=== PATIENT | female | born 2000 | race Caucasian/White ===

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

== ENCOUNTER 2018-07-16 13:49 | Emergency (ER) | payer OTHER | END 2018-07-16 18:55 | disposition home or self-care (01) | LOC: JER 13:49 ==

== ENCOUNTER 2018-08-13 13:42 | Emergency (ER) | payer OTHER ==
[2018-08-13 13:49] VITALS: BP 114/82; PULSE 73; TEMP 98.5; BMI 23.7
[2018-08-13] MEDS ORDERED: KETOROLAC TROMETHAMINE 60 MG/2 ML VIAL IM ONE (14:10)
[2018-08-13] MEDS ORDERED: KETOROLAC TROMETHAMINE 60 MG/2 ML VIAL ONE (14:16)
--- NOTE | 2018-08-13 14:37 | PDOC ---
History of Present Illness - General Chief Complaint: Pain Stated Complaint: STOMACH PAIN/CRAMPS Time Seen by Provider: 08/13/18 13:58 History Source: Patient Exam Limitations: No Limitations Past History - Past Medical History Allergies/Adverse Reactions: Allergies Allergy/AdvReac Type Severity Reaction Status Date / Time No Known Allergies Allergy Verified 11/04/17 10:16 Home Medications: Ambulatory Orders NK [No Known Home Medication] 08/13/18 COPD: No - Immunization History Immunization Up to Date: Yes - Suicide/Smoking/Psychosocial Hx Smoking History: Never smoked Have you smoked in the past 12 months: No Information on smoking cessation initiated: No Hx Alcohol Use: No Drug/Substance Use Hx: No Substance Use Type: None Abd/GI Specific PMHX - Complaint Specific PMHX Colitis: No Diverticulitis: No Gall Bladder Disease: No GERD: No Hepatitis: No Irritable Bowel Synd (IBS): No Pancreatitis: No GI Ulcer Disease: No *Physical Exam - Vital Signs Last Vital Signs Temp Pulse Resp BP Pulse Ox 98.5 F 73 17 114/82 100 08/13/18 13:46 08/13/18 13:46 08/13/18 13:46 08/13/18 13:46 08/13/18 13:46 - Physical Exam General Appearance: No: Apparent Distress Respiratory/Chest: positive: Lungs Clear, Normal Breath Sounds. negative: Respiratory Distress Cardiovascular: positive: Regular Rhythm, Regular Rate, S1, S2. negative: Murmur Gastrointestinal/Abdominal: positive: Normal Bowel Sounds, Soft. negative: Tender, Distended, Guarding, Rebound Musculoskeletal: negative: CVA Tenderness Integumentary: positive: Normal Color Neurologic: positive: Alert, Normal Mood/Affect ED Treatment Course - Medications Given in the ED: ED Medications Discontinued Medications Generic Name Dose Route Start Last Admin Trade Name Freq PRN Reason Stop Dose Admin Ketorolac Tromethamine 60 mg 08/13/18 14:10 08/13/18 14:18 Toradol Injection - IM 08/13/18 14:11 60 mg ONCE ONE Administration Medical Decision Making - Medical Decision Making 18 y/o F with no sig pmh presents with painful menstrual cramps. States her menstruation started yesterday. Patient was here last month for similar complaint. Mentions menstrual cycles are otherwise regular and not heavier than normal. Noticed from around last year that her cycles are more painful than usual. Patient has not followed-up with interactive media project manager; states has no interactive media project manager and unsure how to find one. +mild nausea today. Has been taking Naprosyn for pain; last taken at 7 AM today. Denies fever, sob, cp, vomiting, increased urinary frequency, urgency, dysuria, unusual vaginal discharge, vaginal lesions. Patient states she has not been sexually active for 2 months Dysmenorrhea Plan: Toradol, UCG Discussed with patient the importance of follow-up 08/13/18 14:32 UCG negative Patient feeling better on reassessment stable for dc 08/13/18 14:49 *DC/Admit/Observation/Transfer Diagnosis at time of Disposition: Dysmenorrhea - Discharge Dispostion Disposition: HOME Condition at time of disposition: Stable Decision to Admit order: No - Referrals Referrals: Benja Nobles MD [Staff Physician] - 2 Days - Patient Instructions Printed Discharge Instructions: DI for Dysmenorrhea Additional Instructions: Thank you for choosing [facility]. It was a pleasure taking care of you. You may take Motrin 600 mg every 6 hours by mouth as needed for mild to moderate pain. Take Motrin with food. You were referred to interactive media project manager for further evaluation Return to the Emergency Department if your symptoms worsen or persist or have other concerning symptoms. - Post Discharge Activity
== END 2018-08-13 15:10 | disposition home or self-care (01) ==
LOC: JERFT 13:42
PROC: 3E0233Z Introduction of Anti-inflammatory into Muscle, Percutaneous Approach (ICD-10-PCS; principal; 2018-08-13)
DX: N94.6 Dysmenorrhea, unspecified (principal)
CPT/HCPCS: 84703; 99281-25

== ENCOUNTER 2018-12-12 20:01 | Emergency (ER) | payer OTHER ==
[2018-12-12 20:13] VITALS: BP 116/80; PULSE 83; TEMP 98.3; BMI 24.6
--- NOTE | 2018-12-12 20:13 | PDOC ---
Rapid Medical Evaluation Time Seen by Provider: 12/12/18 20:09 Medical Evaluation: Allergies Allergy/AdvReac Type Severity Reaction Status Date / Time No Known Allergies Allergy Verified 11/04/17 10:16 12/12/18 20:11 Pt c/o: severe menstrual cramps with menstruation since yesterday, took motrin no relief, normally if pain is not relieved she comes to ED for an injection Pt on brief exam: vss, suprapubic tenderness Pt ordered for: ua, upreg Pt to proceed to the ED Discharge Disposition - Diagnosis Dysmenorrhea - Referrals - Patient Instructions - Post Discharge Activity
[2018-12-12] MEDS ORDERED: KETOROLAC TROMETHAMINE 30 MG/1 ML VIAL IM ONE (20:26)
[2018-12-12] MEDS ORDERED: KETOROLAC TROMETHAMINE 30 MG/1 ML VIAL ONE (20:28)
--- NOTE | 2018-12-12 20:33 | PDOC ---
History of Present Illness - General Chief Complaint: Pain, Acute Stated Complaint: ABD PAIN/NAUSEA Time Seen by Provider: 12/12/18 20:09 History Source: Patient - History of Present Illness Timing/Duration: reports: constant, other (today) Quality: reports: cramping Past History - Past Medical History Allergies/Adverse Reactions: Allergies Allergy/AdvReac Type Severity Reaction Status Date / Time No Known Allergies Allergy Verified 11/04/17 10:16 Home Medications: Ambulatory Orders Ibuprofen [Motrin -] 600 mg PO QID #28 tablet 12/12/18 COPD: No - Immunization History Immunization Up to Date: Yes - Psycho Social/Smoking Cessation Hx Smoking History: Never smoked Have you smoked in the past 12 months: No Hx Alcohol Use: No Drug/Substance Use Hx: No Substance Use Type: None Abd/GI Specific PMHX - Complaint Specific PMHX Colitis: No Diverticulitis: No Gall Bladder Disease: No GERD: No Hepatitis: No Irritable Bowel Synd (IBS): No Pancreatitis: No GI Ulcer Disease: No Review of Systems - Review of Systems Constitutional: No: Chills, Fever ABD/GI: Yes: Abdominal cramping. No: Constipated, Diarrhea, Nausea, Vomiting : No: Burning, Dysuria, Flank Pain *Physical Exam - Vital Signs Last Vital Signs Temp Pulse Resp BP Pulse Ox 98.3 F 83 19 116/80 97 12/12/18 20:10 12/12/18 20:10 12/12/18 20:10 12/12/18 20:10 12/12/18 20:10 - Physical Exam General Appearance: Yes: Appropriately Dressed. No: Apparent Distress HEENT: positive: Normal Voice Neck: positive: Supple Respiratory/Chest: negative: Respiratory Distress Gastrointestinal/Abdominal: positive: Normal Bowel Sounds, Tender (minimal ttp diffusely to lower abd, NT over mcburneys), Soft. negative: Distended, Guarding , Rebound Musculoskeletal: negative: CVA Tenderness Integumentary: positive: Dry, Warm Neurologic: positive: Fully Oriented, Alert, Normal Mood/Affect Medical Decision Making - Medical Decision Making 12/12/18 20:27 18-year-old female history of dysmenorrhea with multiple ER visits for menstrual cramps per patient here with same. States she got her menses today and started having her usual cramps. Taking 400 mg of Motrin with no relief. No nausea vomiting fever chills or dysuria. She usually comes to the ED and get "a shot" which usually helps see exam Dymenorrhea Multiple ED visits for same Only taking 400mg motrin at home Dose of toradol given here Upreg and UA sent from [facility] but pt declined to wait for results -Dc w/ 600mg notrin prn pain -Encouraged WELDER FITTER GAS f/u Discharge - Discharge Information Problems reviewed: Yes Clinical Impression/Diagnosis: Dysmenorrhea Condition: Good Disposition: HOME - Additional Discharge Information Prescriptions: Ibuprofen [Motrin -] 600 mg PO QID #28 tablet - Follow up/Referral - Patient Discharge Instructions Patient Printed Discharge Instructions: DI for Dysmenorrhea Additional Instructions: Take 600 to 800 mg of Motrin every 6 hours as needed for menstrual cramps and follow-up with your WELDER FITTER GAS - Post Discharge Activity
[2018-12-12 21:02] LABS: EPI CELLS 5.5 /HPF (0-5/HPF); HYALINE CASTS 13 /lpf (0-8); URINE APPEARANCE CLOUDY; URINE BACTERIA 735.1 /hpf (NEGATIVE); URINE BILIRUBIN NEGATIVE (NEGATIVE); URINE COLOR YELLOW; URINE GLUCOSE (UA) NEGATIVE (NEGATIVE); URINE KETONE TRACE (NEGATIVE); URINE LEUK ESTERASE NEGATIVE (NEGATIVE); URINE NITRITE NEGATIVE (NEGATIVE); URINE PROTEIN 1+ (NEGATIVE); URINE UROBILINOGEN 0.2 mg/dL (0.2-1.0); URINE WBC 2 /hpf (0-5)
[2018-12-12 23:57] LABS: URINE RBC 15.4 /hpf (0-4); YEAST NONE SEEN (NEGATIVE)
== END 2018-12-12 20:48 | disposition home or self-care (01) ==
LOC: JERFT 20:01
PROC: 3E0233Z Introduction of Anti-inflammatory into Muscle, Percutaneous Approach (ICD-10-PCS; principal; 2018-12-12)
DX: N94.6 Dysmenorrhea, unspecified (principal)
CPT/HCPCS: 81003; 84703; 99282-25

== ENCOUNTER 2019-01-14 20:02 | Emergency (ER) | payer OTHER ==
[2019-01-14 20:34] VITALS: BP 116/69; PULSE 83; TEMP 98.3; BMI 24.6
--- NOTE | 2019-01-14 20:39 | PDOC ---
Rapid Medical Evaluation Chief Complaint: Pain Time Seen by Provider: 01/14/19 20:37 Medical Evaluation: Allergies Allergy/AdvReac Type Severity Reaction Status Date / Time No Known Allergies Allergy Verified 12/12/18 20:35 Vital Signs Temp Pulse Resp BP Pulse Ox 98.3 F 83 19 116/69 97 01/14/19 20:31 01/14/19 20:31 01/14/19 20:31 01/14/19 20:31 01/14/19 20:31 01/14/19 20:37 Pt c/o: painful menstrual cramps, here for same before, requesting toradol p ton brief exam: mid suprapubic tenderness, vss, no acute distress Pt ordered for: none Pt to proceed to the ED Discharge Disposition - Diagnosis Dysmenorrhea - Discharge Dispostion Disposition: HOME Condition at time of disposition: Stable - Referrals - Patient Instructions Additional Instructions: Return to the emergency room for worsening symptoms. You were given an injection of a long-acting anti-inflammatory. Avoid anti-inflammatories until this time tomorrow night such as Advil Motrin Aleve and ibuprofen. You may continue with Tylenol as directed. Without fail follow-up with your RIM FIRE CHARGER OPERATOR in 1 to 2 days - Post Discharge Activity Work/School Note: Back to Work
[2019-01-14] MEDS ORDERED: KETOROLAC TROMETHAMINE 60 MG/2 ML VIAL IM ONE (20:56)
--- NOTE | 2019-01-14 20:58 | PDOC ---
History of Present Illness - General Chief Complaint: Pain Stated Complaint: DIZZY/MENSTRUAL/PAIN/NAUSEA Time Seen by Provider: 01/14/19 20:37 - History of Present Illness Initial Comments: 01/14/19 20:57 18-year-old female without comorbidities presents for evaluation of menstrual cramping Past History - Past Medical History Allergies/Adverse Reactions: Allergies Allergy/AdvReac Type Severity Reaction Status Date / Time No Known Allergies Allergy Verified 01/14/19 20:50 Home Medications: Ambulatory Orders NK [No Known Home Medication] 01/14/19 COPD: No - Reproductive History Therapeutic (s) & number: No - Immunization History Immunization Up to Date: Yes - Psycho Social/Smoking Cessation Hx Smoking History: Never smoked Have you smoked in the past 12 months: No Hx Alcohol Use: No Drug/Substance Use Hx: No Substance Use Type: None Review of Systems - Review of Systems : Yes: See HPI *Physical Exam - Vital Signs Last Vital Signs Temp Pulse Resp BP Pulse Ox 98.3 F 83 19 116/69 97 01/14/19 20:31 01/14/19 20:31 01/14/19 20:31 01/14/19 20:31 01/14/19 20:31 - Physical Exam 01/14/19 20:57 GENERAL: The patient is awake, alert, and fully oriented, in no acute distress. HEAD: Normal with no signs of trauma. EYES: sclera anicteric, conjunctiva clear. EXTREMITIES: Normal range of motion, no edema. No clubbing or cyanosis. No cords, erythema, or tenderness. NEUROLOGICAL: Cranial nerves II through XII grossly intact. Normal speech, normal gait. PSYCH: Normal mood, normal affect. SKIN: Warm, Dry, normal turgor, no rashes or lesions noted. Medical Decision Making - Medical Decision Making 01/14/19 20:57 Minimal relief with Motrin this morning we will give a shot of Toradol discussed use of continue with Tylenol at home Discharge - Discharge Information Problems reviewed: Yes Clinical Impression/Diagnosis: Dysmenorrhea Condition: Stable Disposition: HOME - Admission No - Follow up/Referral - Patient Discharge Instructions Additional Instructions: Return to the emergency room for worsening symptoms. You were given an injection of a long-acting anti-inflammatory. Avoid anti-inflammatories until this time tomorrow night such as Advil Motrin Aleve and ibuprofen. You may continue with Tylenol as directed. Without fail follow-up with your HAMMER OPERATOR in 1 to 2 days - Post Discharge Activity
[2019-01-14] MEDS ORDERED: KETOROLAC TROMETHAMINE 60 MG/2 ML VIAL ONE (21:05)
== END 2019-01-14 21:11 | disposition home or self-care (01) ==
LOC: JERFT 20:02
PROC: 3E0233Z Introduction of Anti-inflammatory into Muscle, Percutaneous Approach (ICD-10-PCS; principal; 2019-01-14)
DX: N94.6 Dysmenorrhea, unspecified (principal)
CPT/HCPCS: 99281-25

== ENCOUNTER 2019-02-16 20:20 | Emergency (ER) | payer OTHER ==
[2019-02-16] MEDS ORDERED: ACETAMINOPHEN 325 MG TABLET (FP) PO ONE (20:39)
--- NOTE | 2019-02-16 20:39 | PDOC ---
Rapid Medical Evaluation Medical Evaluation: Allergies Allergy/AdvReac Type Severity Reaction Status Date / Time No Known Allergies Allergy Verified 01/14/19 20:50 I have performed a brief in-person evaluation of this patient. The patient presents with a chief complaint of: c/o painful menstrual cramps; patient took Tylenol today at 11 AM without relief; has been to ED multiple visits for same complaint; also mentions having fever, chills, body aches from today as well; denies vomiting, urinary sxs Pertinent physical exam findings: In NAD I have ordered the following: ucg, urine, tylenol, flu swab The patient will proceed to the ED for further evaluation. 02/16/19 20:36
[2019-02-16 20:40] VITALS: BP 130/77; PULSE 117; TEMP 101.3; BMI 24.4
[2019-02-16 21:02] LABS: EPI CELLS 2.4 /HPF (0-5/HPF); HYALINE CASTS 6 /lpf (0-8); PH,URINE 5.5 (5.0-8.0); URINE APPEARANCE CLOUDY; URINE BACTERIA 365.7 /hpf (NEGATIVE); URINE BILIRUBIN NEGATIVE (NEGATIVE); URINE COLOR YELLOW; URINE GLUCOSE (UA) NEGATIVE (NEGATIVE); URINE KETONE NEGATIVE (NEGATIVE); URINE LEUK ESTERASE 1+ (NEGATIVE); URINE NITRITE NEGATIVE (NEGATIVE); URINE PROTEIN TRACE (NEGATIVE); URINE RBC 168 /hpf (0-4); URINE UROBILINOGEN 0.2 mg/dL (0.2-1.0); URINE WBC 27 /hpf (0-5)
[2019-02-16] MEDS ORDERED: ACETAMINOPHEN 325 MG TABLET (FP) ONE (21:34)
--- NOTE | 2019-02-16 21:37 | PDOC ---
History of Present Illness - General Chief Complaint: Back Pain Stated Complaint: BACK/ABD/PAIN/CHILLS/NAUSEA Time Seen by Provider: 02/16/19 20:36 - History of Present Illness Initial Comments: 02/16/19 21:33 18-year-old female with dysuria x2 days no systemic symptoms Past History - Past Medical History Allergies/Adverse Reactions: Allergies Allergy/AdvReac Type Severity Reaction Status Date / Time No Known Allergies Allergy Verified 02/16/19 20:40 Home Medications: Ambulatory Orders Nitrofurantoin Monohyd/M-Cryst [Macrobid -] 100 mg PO BID #14 capsule 02/16/19 COPD: No - Reproductive History Therapeutic (s) & number: No - Immunization History Immunization Up to Date: Yes - Psycho Social/Smoking Cessation Hx Smoking History: Never smoked Have you smoked in the past 12 months: No Information on smoking cessation initiated: No Hx Alcohol Use: No Drug/Substance Use Hx: No Substance Use Type: None Review of Systems - Review of Systems Constitutional: No: Fever : Yes: Burning, Dysuria *Physical Exam - Vital Signs Last Vital Signs Temp Pulse Resp BP Pulse Ox 101.3 F H 117 H 18 130/77 98 02/16/19 20:36 02/16/19 20:36 02/16/19 20:36 02/16/19 20:36 02/16/19 20:36 - Physical Exam 02/16/19 21:34 GENERAL: The patient is awake, alert, and fully oriented, in no acute distress. HEAD: Normal with no signs of trauma. EYES: sclera anicteric, conjunctiva clear. EXTREMITIES: Normal range of motion, no edema. No clubbing or cyanosis. No cords, erythema, or tenderness. NEUROLOGICAL: Cranial nerves II through XII grossly intact. SKIN: Warm, Dry, normal turgor, no rashes or lesions noted. ED Treatment Course - ADDITIONAL ORDERS Additional order review: Laboratory Results 02/16/19 02/16/19 20:55 20:55 Urine Color Yellow Urine Appearance Cloudy Urine pH 5.5 Ur Specific [place] 1.026 Urine Protein Trace Urine Glucose (UA) Negative Urine Ketones Negative Urine Blood 3+ H Urine Nitrite Negative Urine Bilirubin Negative Urine Urobilinogen 0.2 Ur Leukocyte Esterase 1+ H Urine WBC (Auto) 27 Urine RBC (Auto) 168 Urine Casts (Auto) 6 U Epithel Cells (Auto) 2.4 Urine Bacteria (Auto) 365.7 Urine HCG, Qual Negative - Medications Given in the ED: ED Medications Discontinued Medications Generic Name Dose Route Start Last Admin Trade Name Padmini PRN Reason Stop Dose Admin Acetaminophen 975 mg 02/16/19 20:39 02/16/19 21:30 Tylenol - PO 02/16/19 20:40 975 mg ONCE ONE Administration Medical Decision Making - Medical Decision Making 02/16/19 21:35 Positive UTI Macrobid follow-up with primary care physician Discharge - Discharge Information Problems reviewed: Yes Clinical Impression/Diagnosis: Urinary tract infection Condition: Stable Disposition: HOME - Admission No - Additional Discharge Information Prescriptions: Nitrofurantoin Monohyd/M-Cryst [Macrobid -] 100 mg PO BID #14 capsule - Follow up/Referral Referrals: Lonnie Steven MD [Primary Care Provider] - - Patient Discharge Instructions Patient Printed Discharge Instructions: Urinary Tract Infection Additional Instructions: Please take the antibiotics as directed. Return to the emergency room for worsening symptoms. Without fail follow-up with your primary care physician in 1 to 2 days for further evaluation and treatment options. - Post Discharge Activity
== END 2019-02-16 21:42 | disposition home or self-care (01) ==
LOC: JER 20:20 → JERFT 20:20
DX: N39.0 Urinary tract infection, site not specified (principal)
CPT/HCPCS: 81003; 84703; 87804; 99281-25

== ENCOUNTER 2019-04-15 14:57 | Emergency (ER) | payer OTHER ==
[2019-04-15 15:06] VITALS: BP 132/89; PULSE 88; TEMP 98.3; BMI 24.6
--- NOTE | 2019-04-15 15:09 | PDOC ---
Rapid Medical Evaluation Chief Complaint: Pain, Acute Time Seen by Provider: 04/15/19 15:06 Medical Evaluation: Allergies Allergy/AdvReac Type Severity Reaction Status Date / Time No Known Allergies Allergy Verified 04/15/19 15:06 Vital Signs Temp Pulse Resp BP Pulse Ox 98.3 F 88 16 132/89 97 04/15/19 15:03 04/15/19 15:03 04/15/19 15:03 04/15/19 15:03 04/15/19 15:03 04/15/19 15:07 Pt c/o: increased menstrual cramps, took tylenol ES with no relief, LMP 1 month ago, hx of ovarian cyst pt on brief exam: midsuprapubic tenderness, vss pt ordered for: urine pt to proceed to the ED Discharge Disposition - Diagnosis Abdominal pain - Referrals - Patient Instructions - Post Discharge Activity
[2019-04-15] MEDS ORDERED: IBUPROFEN 400 MG TABLET (FP) PO ONE (15:12)
--- NOTE | 2019-04-15 15:18 | PDOC ---
History of Present Illness - General Chief Complaint: Pain, Acute Stated Complaint: ABD PAIN Time Seen by Provider: 04/15/19 15:06 History Source: Patient Past History - Past Medical History Allergies/Adverse Reactions: Allergies Allergy/AdvReac Type Severity Reaction Status Date / Time No Known Allergies Allergy Verified 04/15/19 15:06 Home Medications: Ambulatory Orders Naproxen 500 mg PO BID #30 tablet 04/15/19 COPD: No - Reproductive History Therapeutic (s) & number: No - Immunization History Immunization Up to Date: Yes - Psycho Social/Smoking Cessation Hx Smoking History: Never smoked Have you smoked in the past 12 months: No Hx Alcohol Use: No Drug/Substance Use Hx: No Substance Use Type: None Abd/GI Specific PMHX - Complaint Specific PMHX Colitis: No Diverticulitis: No Gall Bladder Disease: No GERD: No Hepatitis: No Irritable Bowel Synd (IBS): No Pancreatitis: No GI Ulcer Disease: No *Physical Exam - Vital Signs Last Vital Signs Temp Pulse Resp BP Pulse Ox 98.3 F 88 16 132/89 97 04/15/19 15:03 04/15/19 15:03 04/15/19 15:03 04/15/19 15:03 04/15/19 15:03 Medical Decision Making - Medical Decision Making 12/12/18 20:27 18-year-old female, history of ovarian cyst, dysmenorrhea with multiple ER visits for menstrual cramps per patient, here with same. States she got her menses today and started having her usual cramps. Taking 600 mg of Motrin with no relief. No nausea, vomiting, fever chills or dysuria. 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 -Upreg neg -Dose of IM tradol given -Dc w/ pain control and encourage LINUX SERVER ENGINEER f/u Discharge - Discharge Information Problems reviewed: Yes Clinical Impression/Diagnosis: Dysmenorrhea Condition: Improved Disposition: HOME - Additional Discharge Information Prescriptions: Naproxen 500 mg PO BID #30 tablet - Follow up/Referral Referrals: Lonnie Steven MD [Primary Care Provider] - - Patient Discharge Instructions Patient Printed Discharge Instructions: DI for Dysmenorrhea Additional Instructions: Take medication as prescribed and follow-up with LINUX SERVER ENGINEER - Post Discharge Activity Work/Back to School Note: Back to Work
[2019-04-15 15:30] LABS: EPI CELLS 7.8 /HPF (0-5/HPF); HYALINE CASTS 15 /lpf (0-8); PH,URINE 7.5 (5.0-8.0); URINE APPEARANCE CLEAR; URINE BACTERIA 271.4 /hpf (NEGATIVE); URINE BILIRUBIN NEGATIVE (NEGATIVE); URINE COLOR YELLOW; URINE GLUCOSE (UA) NEGATIVE (NEGATIVE); URINE KETONE NEGATIVE (NEGATIVE); URINE LEUK ESTERASE TRACE (NEGATIVE); URINE NITRITE NEGATIVE (NEGATIVE); URINE PROTEIN TRACE (NEGATIVE); URINE RBC 63 /hpf (0-4); URINE UROBILINOGEN 0.2 mg/dL (0.2-1.0); URINE WBC 9 /hpf (0-5)
[2019-04-15] MEDS ORDERED: KETOROLAC TROMETHAMINE 60 MG/2 ML VIAL IM ONE (15:33)
[2019-04-15] MEDS ORDERED: KETOROLAC TROMETHAMINE 60 MG/2 ML VIAL ONE (15:38)
== END 2019-04-15 15:55 | disposition home or self-care (01) ==
LOC: JERFT 14:57
PROC: 3E0233Z Introduction of Anti-inflammatory into Muscle, Percutaneous Approach (ICD-10-PCS; principal; 2019-04-15)
DX: N94.6 Dysmenorrhea, unspecified (principal)
CPT/HCPCS: 81003; 84703; 99284-25

== ENCOUNTER 2020-05-04 16:41 | Emergency (ER) | payer OTHER ==
[2020-05-04 17:42] VITALS: BP 112/79; PULSE 103; TEMP 97.9; BMI 25.7
[2020-05-04] MEDS ORDERED: IBUPROFEN 400 MG TABLET (FP) PO ONE (18:03)
[2020-05-04] MEDS ORDERED: KETOROLAC TROMETHAMINE 60 MG/2 ML VIAL IM ONE (18:08)
[2020-05-04] MEDS ORDERED: KETOROLAC TROMETHAMINE 60 MG/2 ML VIAL ONE (18:11)
== END 2020-05-04 18:21 | disposition home or self-care (01) ==
LOC: JER 16:41
PROC: 3E0233Z Introduction of Anti-inflammatory into Muscle, Percutaneous Approach (ICD-10-PCS; principal; 2020-05-04)
DX: N94.6 Dysmenorrhea, unspecified (principal)
CPT/HCPCS: 99284-25

== ENCOUNTER 2020-11-15 17:59 | Emergency (ER) | payer OTHER ==
[2020-11-15 18:04] VITALS: BMI 26.5
[2020-11-15 20:00] LABS: EPI CELLS 15 /uL (0-25.1); HYALINE CASTS 1 /uL (0-3.1); PH,URINE 5.5 (5.0-8.0); URINE APPEARANCE CLEAR; URINE BACTERIA 388 /uL (0-1359); URINE BILIRUBIN NEGATIVE (NEGATIVE); URINE COLOR YELLOW; URINE GLUCOSE (UA) NEGATIVE (NEGATIVE); URINE KETONE NEGATIVE (NEGATIVE); URINE LEUK ESTERASE 1+ (NEGATIVE); URINE NITRITE NEGATIVE (NEGATIVE); URINE PROTEIN TRACE (NEGATIVE); URINE RBC 3995 /uL (0-23.9); URINE WBC 58 /uL (0-25.8)
[2020-11-15 20:49] LABS: BASO % 0.9 % (0-2.0); EOS % 1.4 % (0-4.5); HEMATOCRIT 35.5 % (32.4-45.2); HEMOGLOBIN 11.8 GM/dL (10.7-15.3); LYMPH % 28.9 % (8-40); MCH 25.4 pg (25.7-33.7); MCHC 33.3 g/dl (32.0-36.0); MEAN CELL VOLUME 76.3 fl (80-96); MEAN PLT VOLUME 9.4 fl (7.5-11.1); NEUT % 61.8 % (42.8-82.8); PLATELET COUNT 355 10^3/uL (134-434); RBC 4.66 M/mm3 (3.60-5.2); RDW 14.9 % (11.6-15.6); WHITE BLOOD COUNT 6.6 K/mm3 (4.0-10.0)
[2020-11-15 20:57] LABS: CALCIUM 8.4 mg/dL (8.5-10.1)
[2020-11-15 20:58] LABS: ALBUMIN 3.5 g/dl (3.4-5.0); BLOOD UREA NITROGEN 5.9 mg/dL (7-18)
[2020-11-15 21:01] LABS: CREATININE 0.6 mg/dL (0.55-1.3)
[2020-11-15 21:02] LABS: BILIRUBIN,TOTAL 0.2 mg/dL (0.2-1)
[2020-11-15 21:03] LABS: TOT PROT 7.6 g/dl (6.4-8.2)
[2020-11-15] MEDS ORDERED: KETOROLAC TROMETHAMINE 30 MG/1 ML VIAL IM ONE (21:22)
[2020-11-15] MEDS ORDERED: KETOROLAC TROMETHAMINE 30 MG/1 ML VIAL ONE (21:27)
[2020-11-15 21:47] VITALS: BP 132/87; PULSE 97; TEMP 98.2
== END 2020-11-15 21:47 | disposition home or self-care (01) ==
LOC: JER 17:59
PROC: 3E0233Z Introduction of Anti-inflammatory into Muscle, Percutaneous Approach (ICD-10-PCS; principal; 2020-11-15)
DX: N94.4 Primary dysmenorrhea (principal)
CPT/HCPCS: 36415; 80053; 81003; 84703; 85025; 99283-25

== ENCOUNTER 2022-09-23 11:02 | Emergency (ER) | payer OTHER ==
[2022-09-23 11:13] VITALS: BP 143/88; PULSE 101; RESP 18; TEMP 99.2; BMI 26.5
[2022-09-23 13:43] LABS: THROAT:GRP A STREP NOT DETECTED (NOTDETECTED)
== END 2022-09-23 14:05 | disposition home or self-care (01) ==
LOC: JER 11:02 → JERFT 11:02
DX: R50.9 Fever, unspecified (principal); R51.9 Headache, unspecified; M79.10 Myalgia, unspecified site; R53.83 Other fatigue; R09.81 Nasal congestion; R05.9 Cough, unspecified; U07.1 COVID-19
CPT/HCPCS: 0241U-QW; 87651; 99283-25

== ENCOUNTER 2024-07-06 18:57 | Emergency (ER) | payer OTHER ==
[2024-07-06 19:02] VITALS: RESP 20; BMI 26.5
[2024-07-06] MEDS ORDERED: FAMOTIDINE 20 MG/50 ML IVPB 20 MG/50 ML MG IVPB ONE (19:59)
[2024-07-06] MEDS ORDERED: ONDANSETRON 4 MG/2 ML VIAL ONE (19:59)
[2024-07-06] MEDS: ONDANSETRON 4 MG/2 ML VIAL IVPB ONE (20:22)
[2024-07-06] MEDS: FAMOTIDINE 20 MG/50 ML IVPB 20 MG/50 ML MG IVPB ONE (20:22)
[2024-07-06] MEDS: SODIUM CHLORIDE 0.9% 500 ML INFUS.BAG IV ONE (20:22)
[2024-07-06 20:26] LABS: PH,URINE 7.5 (5.0-8.0); URINE APPEARANCE CLEAR; URINE BILIRUBIN NEGATIVE (NEGATIVE); URINE COLOR YELLOW; URINE GLUCOSE (UA) NEGATIVE (NEGATIVE); URINE KETONE NEGATIVE (NEGATIVE); URINE LEUK ESTERASE NEGATIVE (NEGATIVE); URINE NITRITE NEGATIVE (NEGATIVE); URINE PROTEIN TRACE (NEGATIVE)
[2024-07-06 20:27] LABS: ABSOLUTE IMMATURE GRANULOCYTES 0.05 x10^3/uL (0.0-0.031); BASOPHILS # 0.01 x10^3/uL (0.01-0.08); HEMATOCRIT 36.2 % (34.1-44.9); HEMOGLOBIN 11.1 g/dL (11.2-15.7); MCHC 30.7 g/dl (32.2-35.5); MEAN CELL VOLUME 76.2 fl (79.4-94.8); MEAN PLT VOLUME 10.6 fl (9.4-12.3); MONOCYTE # 0.23 x10^3/uL (0.24-0.86); MONOCYTE % 3.6 % (4.7-12.5); PLATELET COUNT 323 x10^3/uL (182-369); RDW 14.5 % (12.1-16.5)
[2024-07-06] MEDS ORDERED: KETOROLAC TROMETHAMINE 15 MG/ML VIAL ONE (20:51)
[2024-07-06] MEDS: KETOROLAC TROMETHAMINE 15 MG/ML VIAL IVPUSH ONE (21:04)
[2024-07-06 21:18] LABS: POTASSIUM 3.9 mmol/L (3.5-5.1)
[2024-07-06 21:23] LABS: CALCIUM 9.2 mg/dL (8.5-10.1)
[2024-07-06 21:24] LABS: ALBUMIN 3.8 g/dl (3.4-5.0); BLOOD UREA NITROGEN 7.4 mg/dL (7-18)
[2024-07-06 21:27] LABS: CREATININE 0.7 mg/dL (0.55-1.3)
[2024-07-06 21:29] LABS: TOT PROT 7.7 g/dl (6.4-8.2)
[2024-07-06 21:34] LABS: BILIRUBIN,TOTAL 0.4 mg/dL (0.2-1)
[2024-07-06 21:40] LABS: HIV INTERPRETATION NEGATIVE (NEGATIVE)
[2024-07-06 21:41] LABS: HCV DIAGNOSTIC IN-HOUSE W/RFLX NON-REACTIVE (NONREACTIVE)
[2024-07-07 00:37] VITALS: BP 136/76; PULSE 104; TEMP 99.4
== END 2024-07-07 01:17 | disposition home or self-care (01) ==
LOC: JER 18:57
PROC: 3E033GC Introduction of Other Therapeutic Substance into Peripheral Vein, Percutaneous Approach (ICD-10-PCS; principal; 2024-07-06)
PROC: 3E033GC Introduction of Other Therapeutic Substance into Peripheral Vein, Percutaneous Approach (ICD-10-PCS; 2024-07-06)
PROC: 3E0333Z Introduction of Anti-inflammatory into Peripheral Vein, Percutaneous Approach (ICD-10-PCS; 2024-07-06)
DX: K50.00 Crohn's disease of small intestine without complications (principal); M79.10 Myalgia, unspecified site; R50.9 Fever, unspecified; R11.0 Nausea; R00.0 Tachycardia, unspecified; R10.13 Epigastric pain; R10.31 Right lower quadrant pain; R10.32 Left lower quadrant pain; M54.9 Dorsalgia, unspecified
CPT/HCPCS: 0241U-QW; 36415; 74177-TC; 80053; 81003; 83690; 84703; 85025; 86803; 87086; 87389; 93005; 93010; 99285-25